=== PATIENT | female | born 1995 | race Caucasian/White ===

== ENCOUNTER 2016-11-19 22:05 | Emergency (ER) | payer OTHER ==
[~2016-11-19] VITALS: Ht 152.4 cm; Wt 36.4 kg
[~2016-11-19 22:05] MED LIST: NAPROSYN500 MG PO; NORTREL1 EAC3 PO; VALIUM2 MG PO
[2016-11-19] MEDS ORDERED: NORTRIPTYLINE H10 MG PO (23:30)
[2016-11-20 00:30] VITALS: BP 126/74
== END 2016-11-20 00:31 | disposition home or self-care (01) ==
LOC: EME 22:05
DX: T41.3X5A Adverse effect of local anesthetics, initial encounter (principal); K06.8 Other specified disorders of gingiva and edentulous alveolar ridge
CPT/HCPCS: 99281; 99283